=== PATIENT | male | born 1955 | race Hispanic/Latino ===

== ENCOUNTER 2020-01-19 13:00 | Emergency (ER) | payer SELFPAY ==
[~2020-01-19] VITALS: Ht 172.7 cm; Wt 104.3 kg
[2020-01-19] MEDS ORDERED: NITROGLYCERIN 2% OINT 1 GM PKT TOP ONE (13:15)
[2020-01-19] MEDS ORDERED: ACETAMINOPHEN 325 MG TAB PO ONE (13:30)
--- NOTE | 2020-01-19 13:47 | Diagnostic Imaging Report ---
EXAMINATION: CXR 1 VIEW - HOPD COMPARISON: None INDICATION: ^SOB ^[id number] ^[id number] DISCUSSION: Frontal view of the chest obtained at 1424 hours. HEART AND MEDIASTINUM: The heart is top normal in size. The aorta is tortuous. LINES: None. LUNGS: Slightly low lung volumes. No pneumonia or pulmonary edema. PLEURA: Trace blunting of the lateral costophrenic angles, either pleural effusion or pleural thickening. BONES AND SOFT TISSUES: No focal osseous lesion. The soft tissues are normal. IMPRESSION: Trace blunting of the costophrenic angles, either pleural effusion or pleural thickening. Signed by: Dr. Eim Dacosta MD on 01/19/2020 1:44 PM
--- NOTE | 2020-01-19 14:00 | NUR ---
[facility] transfer called.
[2020-01-19] MEDS ORDERED: DEXTROSE 50% SYRINGE 50 ML IV PRN (14:15)
--- OUTSIDE RECORDS SUMMARY | 2020-01-19 14:19 | XMS REPORT | Continuity of Care Document ---
Author Author [facility] Organization [facility] Address [address] [place] [phone] Phone Unavailable Care Team Providers Care Fly Setter Name Role Phone Giovanny RODRIGUEZ Attphys Unavailable Problems This patient has no known problems. Allergies, Adverse Reactions, Alerts This patient has no known allergies or adverse reactions. Medications This patient has no known medications. Procedures This patient has no known procedures. Results Test Description Test Time Test Comments Results Result Comments Source CXR 1 VEW - HOPD 2020-01-19 13:35:[address] [facility] 1955 Sex: M [facility] [address] [address] Patient Name: KASIA SHAFER MR #: [id number] : 1955 Age/Sex: 64/M Req #: [id number] [facility] Physician: Ordered by: LUDA RODRIGUEZ MD Report #: [id number] Location: [facility] Room/Bed: Procedure: [id number] HOPD/CXR 1 VEW - HOPD Exam Date: 01/19/20 Exam Time: 1331 REPORT STATUS: Signed EXAMINATION: CXR 1 VIEW - HOPD COMPARISON: None INDICATION: SOB [id number] DISCUSSION: Frontal view of the chest obtained at 1424 hours. HEART AND MEDIASTINUM: The heart is top normal in size. The aorta is tortuous. LINES: None. LUNGS: Slightly low lung volumes. No pneumonia or pulmonary edema. PLEURA: Trace blunting of the lateral costophrenic angles, either pleural effusion or pleural thickening. BONES AND SOFT TISSUES: No focal osseous lesion. The soft tissues are normal. IMPRESSION: Trace blunting of the costophrenic angles, either pleural effusion or pleural thickening. Signed by: Dr. Cristine Dacosta MD on 01/19/2020 1:44 PM Dictated By: CRISTINE DACOSTA MD [id number] Transcribed By: CON on 01/19/20 1344 COPY TO: LUDA RODRIGUEZ MD
[2020-01-19] MEDS ORDERED: ACETAMINOPHEN 325 MG TAB ONE (14:20)
[2020-01-19] MEDS ORDERED: NITROGLYCERIN 2% OINT 1 GM PKT ONE (14:20)
--- NOTE | 2020-01-19 14:20 | NUR ---
jenni called for covid swab to main lab.
--- NOTE | 2020-01-19 14:24 | NUR ---
pt states he does not want admission after allowing to talk to pt. pt wants to leave ama. report to room 214 now cancelled. md states he will discharge pt, not want to ama him? pt disconnected and d/c per er md orders. ambulatory steady gait out of facility with .
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
[2020-01-19] MEDS ORDERED: INSULIN REGULAR, HUMAN 100 UNIT/1 ML 3ML VIAL SQ SCH (16:30)
[2020-01-19] MEDS ORDERED: CARVEDILOL 3.125 MG TAB PO SCH (17:00)
[2020-01-19] MEDS ORDERED: ENOXAPARIN SOD INJ 40 MG/0.4 ML SYR SC SCH (17:00)
[2020-01-19] MEDS ORDERED: LOSARTAN POTASSIUM 25 MG TAB PO SCH (17:00)
== END 2020-01-19 14:41 | disposition home or self-care (01) ==
LOC: FSED 13:20 → ERHOLD 14:16 → UNDOADMOB 14:16 → FSED 14:41
DX: I16.0 Hypertensive urgency (principal); J90 Pleural effusion, not elsewhere classified; R06.02 Shortness of breath; I10 Essential (primary) hypertension; E11.9 Type 2 diabetes mellitus without complications; Z11.59 Encounter for screening for other viral diseases
CPT/HCPCS: 71045; 80053; 81003; 82553; 83880; 84484; 85025; 85379; 93005; 99284; J1650; U0002